=== PATIENT | female | born 1955 | race Two or more races ===

== ENCOUNTER 2023-04-06 17:59 | Emergency (ER) | payer MEDICAID ==
[~2023-04-06] VITALS: Ht 167.6 cm; Wt 63.0 kg
[2023-04-06] MEDS ORDERED: diphenhydrAMINE HCL 50 MG/ML VIAL IV ONE (18:30)
[2023-04-06] MEDS ORDERED: FAMOTIDINE/PF INJ 20 MG/2 ML VIAL IV ONE ×2 (18:30→18:33)
[2023-04-06] MEDS ORDERED: ONDANSETRON HCL/PF 4 MG/2 ML VIAL IVP ONE (18:30)
[2023-04-06] MEDS ORDERED: methylPREDNISolone SOD SUCC 125 MG/2ML VIAL IV ONE (18:30)
[2023-04-06] MEDS ORDERED: IV NS 0.9% 1,000 ML BAG IV ONE (18:30)
[2023-04-06] MEDS ORDERED: methylPREDNISolone SOD SUCC 125 MG/2ML VIAL ONE (18:32)
[2023-04-06] MEDS ORDERED: diphenhydrAMINE HCL 50 MG/ML VIAL ONE (18:32)
[2023-04-06] MEDS ORDERED: ONDANSETRON HCL/PF 4 MG/2 ML VIAL ONE (18:33)
[2023-04-06] MEDS ORDERED: PRED50TA PO (20:21)
[2023-04-06 20:41] VITALS: BP 131/76; TEMP 98.5; O2SAT 99
== END 2023-04-06 20:41 | disposition home or self-care (01) ==
LOC: ER 18:05
DX: R11.10 Vomiting, unspecified (principal); T78.1XXA Other adverse food reactions, not elsewhere classified, initial encounter; Z91.018 Allergy to other foods; X58.XXXA Exposure to other specified factors, initial encounter
CPT/HCPCS: 99284; 96374; 96375; 96361; J1200; J3490; J2930; J2405; J7030